=== PATIENT | male | born 1970 | race Caucasian/White ===

== ENCOUNTER 2019-09-28 22:14 | Observation (INO) ==
[2019-09-28] MEDS ORDERED: ONDANSETRON INJ 2 MG/ML 2 ML VIAL IV STA (22:25)
[2019-09-28] MEDS ORDERED: KETOROLAC 30 MG/ML VIAL IV STA (22:25)
[2019-09-28] MEDS ORDERED: SODIUM CHLORIDE 0.9% 1000ML 1,000 ML IV SCH (22:30)
[2019-09-28 22:50] LABS: Basophils # (auto) 0.03 K/uL (0-0.2); Basophils % (auto) 0.5 %; Eosinophils # (auto) 0.17 K/uL (0-0.5); Eosinophils % (auto) 2.8 %; Hematocrit (blood only) 42.8 % (42-52); Hemoglobin 15.1 g/dL (14.0-18.0); Immature Granulocytes # (auto) 0.02 K/uL (0.00-0.02); Immature Granulocytes % (auto) 0.3 %; Lymphocytes # (auto) 2.09 K/uL (1.2-3.4); Lymphocytes % (auto) 34.7 %; Mean Corpuscular Hemoglobin 34.6 pg (25-34); Mean Corpuscular Hgb Conc 35.3 g/dL (32-36); Mean Corpuscular Volume 98.2 fL (80-100); Mean Platelet Volume 11.2 fL (7.4-10.4); Monocytes # (auto) 0.52 K/uL (0.11-0.59); Monocytes % (auto) 8.6 %; Neutrophils # (auto) 3.19 K/uL (1.4-6.5); Neutrophils % (auto) 53.1 %; Platelet Count 135 K/uL (130-400); RDW Coefficient of Variation 12.5 % (11.5-14.5); Red Blood Count 4.36 M/uL (4.7-6.1); White Blood Count 6.02 K/uL (4.8-10.8)
[2019-09-28 22:51] LABS: Appearance Urine Clear (Clear); Bilirubin Urine Negative (Negative); Blood Urine Negative (Negative); Color Urine Yellow; Glucose Urine UA Negative (Negative); Ketones Urine Negative (Negative); Leukocyte Esterase Urine Negative (Negative); Nitrite Urine Negative (Negative); Protein Urine Negative (Negative); Specific Gravity Urine 1.018 (1.000-1.030); Urobilinogen Urine Negative (Negative)
[2019-09-28 23:12] LABS: Albumin Level 3.8 gm/dl (3.4-5.0); BUN Creatinine Ratio 14.4 (10-20); Calcium 9.3 mg/dl (8.5-10.1); Creatinine Clr Calc Pharmacy 98.4 ml/min; Est GFR (African American) 84.3; Est GFR (Non-African American) 72.8; Potassium 4.2 mmol/L (3.5-5.1)
[2019-09-28 23:15] LABS: Albumin Globulin Ratio 1.1 (0.9-2); Bilirubin,Total 0.7 mg/dl (0.2-1); Globulin 3.4 gm/dl (2.5-4.0); Total Protein 7.2 gm/dl (6.4-8.2)
--- NOTE | 2019-09-29 01:59 | Emergency Department Note ---
History of Present Illness General Chief complaint: Flank Pain Stated complaint: MID BACK, ABD PAIN, SWEATING Time Seen by Provider: 09/28/19 22:21 History of Present Illness Maximum Pain Intensity: 0 This is a 49-year-old male presenting to the emergency department for evaluation of right-sided mid back pain that began acutely at 7:30 PM, roughly 3 hours prior to arrival. The patient states that his pain is very intermittent, and currently rated a 0/10. At worst it was an 8/10. His pain has migrated from the right side mid back to the right upper quadrant. He is not having inferior radiation of pain. He was nauseated with severe pain but has not had vomiting. With severe pain he is also experiencing diaphoresis. He does not have a past history of abdominal surgery or kidney stones. No fevers or chills. No recent travel history. He considers himself usually healthy with only history of hypertension and thyroid disease. The patient did take Aleve with only minimal improvement of symptoms at home. Home Medications Home Medications Medication Instructions Recorded Confirmed Type levothyroxine [Synthroid] 50 mcg PO DAILY 09/28/19 09/28/19 History lisinopril-hydrochlorothiazide 1 tab PO DAILY 09/28/19 09/28/19 History Allergies Allergy/AdvReac Type Severity Reaction Status Date / Time No Known Allergies Allergy Unverified 09/28/19 23:00 Past Med/Surg History Medical History (Updated 09/29/19 @ 02:46 by Carlton Fay MD) Hypertension Hypothyroid Surgical History (Updated 09/29/19 @ 01:54 by Clive Hernandez PA-C) No significant past surgical history Social History Preferred Language: Slovak Communication Ability: Effective Police And Fire Dispatcher Required: No Beliefs That Will Affect Care: None Current Living Situation: Spouse and Family Other Information That Helps Us Care for You: No Feels Safe at Home: Yes Safety Concerns: Feels Safe At This Time Smoking Status: Never smoker Tobacco Type: smokeless tobacco ; Do You Dip or Chew Tobacco: Yes ; Tobacco Cessation Education Requested by Patient: No Hx Alcohol Use: Yes Alcohol type: beer Hx Substance Use: No Review of Systems A total of 10 systems reviewed and were otherwise negative Physical Exam Vital Signs Vital Signs - 24 hr 09/28/19 22:17 09/28/19 23:27 09/29/19 00:34 Temperature Source Oral Pulse Rate 58 L Pulse Rate [Right Finger] 67 68 Respiratory Rate 18 18 18 Blood Pressure 141/84 H Blood Pressure [Left Arm] 117/62 118/77 Blood Pressure Mean 103 Blood Pressure Mean [Left Arm] 80 90 Pulse Oximetry 100 99 98 Oxygen Delivery Method Room Air Room Air Room Air Sepsis Recent Fever Within 48 Hours No Sepsis New/Unexplained Change in Mental Status No Sepsis Action Taken by Nursing No Action Required 09/29/19 00:56 09/29/19 02:17 Temperature Source Pulse Rate Pulse Rate [Right Finger] 88 82 Respiratory Rate 20 20 Blood Pressure Blood Pressure [Left Arm] 137/90 128/80 Blood Pressure Mean Blood Pressure Mean [Left Arm] 105 96 Pulse Oximetry 98 97 Oxygen Delivery Method Room Air Room Air Sepsis Recent Fever Within 48 Hours Sepsis New/Unexplained Change in Mental Status Sepsis Action Taken by Nursing VITALS: Vitals are noted on the nurse's note and reviewed by myself. Vital signs stable. GENERAL: Well-developed, well-nourished, white male who appears in moderate discomfort. He is cooperative with the examination. HEAD: Normocephalic atraumatic. EARS: External ear normal. External auditory canals clear, tympanic membranes pearly ball without erythema or effusion bilaterally. EYES: Pupils equal round and reactive to light and accommodation. Conjunctivae without injection, sclerae without icterus. Extraocular movements intact. NOSE: Patent, turbinates without inflammation or discharge. MOUTH: Mucous membranes moist. Tonsils are not enlarged. Pharynx without erythema, blood, or exudate. Uvula midline. Airway patent. NECK: Supple without nuchal rigidity. No lymphadenopathy. No thyromegaly. Cervical spine is nontender. HEART: Regular rate and rhythm without murmurs gallops or rubs. LUNGS: Clear to auscultation bilaterally without wheezes, rales or rhonchi. No retractions or accessory muscle use. ABDOMEN: Positive normal bowel sounds x 4. Soft with right upper quadrant tenderness. No lower abdominal tenderness. No rebound or guarding. MUSCULOSKELETAL: No muscle atrophy, erythema, or edema noted. Full range of motion in all extremities. NEURO: Patient was alert and oriented to person place and time. CN II through XII grossly intact. Course Administered Medications Sodium Chloride (Nss 1000ml) 1,000 mls @ 80 mls/hr IV .[id number] [facility] Stop: 10/29/19 03:37 Last Admin: 09/29/19 04:02 Dose: 80 mls/hr Documented by: [id number] Discontinued Medications Sodium Chloride (Nss 1000ml) 1,000 mls @ 999 mls/hr IV .[id number] [facility] Stop: 09/28/19 23:30 Last Infusion: 09/28/19 23:56 Dose: 0 mls/hr Documented by: [id number] Admin: 09/28/19 22:39 Dose: 999 mls/hr Documented by: [id number] Famotidine 20 mg/ Syringe 5 mls @ 2.5 mls/min IV ONE ONE Stop: 09/29/19 03:39 Last Admin: 09/29/19 04:02 Dose: 2.5 mls/min Documented by: [id number] Ketorolac Tromethamine (Toradol) 30 mg IV NOW STA Stop: 09/28/19 22:26 Last Admin: 09/28/19 22:39 Dose: 30 mg Documented by: [id number] Ondansetron HCl (Zofran) 4 mg IV NOW STA Stop: 09/28/19 22:26 Last Admin: 09/28/19 22:39 Dose: 4 mg Documented by: [id number] Medical Decision Making Differential Diagnosis Differential diagnosis: Etiologies such as biliary colic, cholecystitis, hepatitis, pancreatitis, cardiac disease, pancreatitis, gastritis, peptic ulcer disease, appendicitis, cystitis, diverticulitis, mesenteric ischemia, inflammatory bowel disease, ileus, bowel obstruction, testicular/adnexal torsion, aortic pathology, shingles, as well as others were considered Laboratory Data Result diagrams: 09/28/19 22:33 09/28/19 22:33 Lab Results 09/28/19 09/28/19 09/28/19 Range/Units 22:33 22:33 22:40 WBC 6.02 (4.8-10.8) K/uL RBC 4.36 L (4.7-6.1) M/uL Hgb 15.1 (14.0-18.0) g/dL Hct 42.8 (42-52) % MCV 98.2 (80-100) fL MCH 34.6 H (25-34) pg MCHC 35.3 (32-36) g/dL RDW Std Deviation 45.0 (36.4-46.3) fL RDW Coeff of Jazmine 12.5 (11.5-14.5) % Plt Count 135 (130-400) K/uL MPV 11.2 H (7.4-10.4) fL Immature Gran % (Auto) 0.3 % Neut % (Auto) 53.1 % Lymph % (Auto) 34.7 % Swift % (Auto) 8.6 % Eos % (Auto) 2.8 % Baso % (Auto) 0.5 % Immature Gran # (Auto) 0.02 (0.00-0.02) K/uL Neut # (Auto) 3.19 (1.4-6.5) K/uL Lymph # (Auto) 2.09 (1.2-3.4) K/uL Swift # (Auto) 0.52 (0.11-0.59) K/uL Eos # (Auto) 0.17 (0-0.5) K/uL Baso # (Auto) 0.03 (0-0.2) K/uL Sodium 136 (136-145) mmol/L Potassium 4.2 (3.5-5.1) mmol/L Chloride 101 (98-107) mmol/L Carbon Dioxide 27 (21-32) mmol/L Anion Gap 8.0 (3-11) BUN 17 (7-18) mg/dl Creatinine 1.17 (0.6-1.4) mg/dl Est Cr Clr Drug Dosing 98.4 ml/min Est GFR ( Amer) 84.3 Est GFR (Non-Af Amer) 72.8 BUN/Creatinine Ratio 14.4 (10-20) Glucose 155 H (70-99) mg/dl Calcium 9.3 (8.5-10.1) mg/dl Total Bilirubin 0.7 (0.2-1) mg/dl AST 33 (15-37) U/L ALT 74 (12-78) U/L Alkaline Phosphatase 71 (45-117) U/L Total Protein 7.2 (6.4-8.2) gm/dl Albumin 3.8 (3.4-5.0) gm/dl Globulin 3.4 (2.5-4.0) gm/dl Albumin/Globulin Ratio 1.1 (0.9-2) Lipase 150 (73-393) U/L Urine Color Yellow Urine Appearance Clear (Clear) Urine pH 5.0 (4.5-7.5) Ur Specific [place] 1.018 (1.000-1.030) Urine Protein Negative (Negative) Urine Glucose (UA) Negative (Negative) Urine Ketones Negative (Negative) Urine Blood Negative (Negative) Urine Nitrite Negative (Negative) Urine Bilirubin Negative (Negative) Urine Urobilinogen Negative (Negative) Ur Leukocyte Esterase Negative (Negative) Imaging Data Radiologist's Impression: Preliminary Findings Only See Final Report For Complete Findings CT ABDOMEN & PELVIS Without Contrast: Prominence of fat around the distal esophagus near the gastroesophageal junction. Fatty liver Borderline distended gallbladder Negative for hydronephrosis or obstructive uropathy Normal appendix. L5 on S1 grade 1 anterior listhesis with bilateral pars interarticularis defect Preliminary Findings Only See Final Report For Complete Findings US RUQ: Comparison: CT 09/28/2019 Limited right abdominal ultrasound Fatty liver Slightly distended gallbladder with sludge near the gallbladder fundus. Small stones may also be present. Within the sludge punctate Doppler flow is seen. Consider follow-up such as with an MRI to exclude a mass CBD measures 4 mm Normal right kidney MDM Narrative Physical exam and history were performed. Nursing notes, EMR, and Medication List were personally reviewed. Patient appears to have right side mid back pain and right upper quadrant abdominal pain for the past few hours bring him to the ER. The pain is somewhat colicky in nature, and on my initial presentation was rated at a very low level. After discussion of his symptoms I did elect to draw labs and send him to CT scan for possible stone versus other etiology. The patient was given IV Toradol, IV fluids, and IV Zofran. Patient's blood work is as above and was reviewed. He does not have a significantly elevated white blood cell count, gross anemia, bandemia, or significant electrolyte imbalance. Lipase and transaminases are not diagnostic. Urine is without blood or evidence of infection. CT scan was reviewed by myself and radiology and shows essentially only a distended gallbladder. Out of concern for possible gallbladder etiology ultrasound was then performed. This was also reviewed, and the gallbladder continues to be slightly distended with sludge near the fundus. There is concern for stones and possible mass on ult rasound that will certainly require MRI for further management. On repeat physical exam, the patient's discomfort is improved, but he still has persistent cramping right upper quadrant pain. Because of this I did discuss the case with Dante Copeland PA-C, of general surgery, who indicates that surgery will be happy to follow the patient in the morning. I then discussed the case with the on-call hospitalist team, who agreed to admit the patient. The patient will likely need MRCP for better evaluation of his symptoms, but this will be left to the discretion of the managing team. The patient himself was pleased with this and was comfortable with staying in the hospital. He remained in stable condition throughout the remainder of his ER stay. The chart was completed utilizing [employer] Speech Voice Recognition Software. Grammatical errors, random word insertions, pronoun errors, and incomplete sentences are an occasional consequence of this system due to software limitations, ambient noise, and hardware issues. Any formal questions or concerns about the content, text, or information contained within the body of this dictation should be directly addressed to the provider for clarification. . Impression & Plan Abdominal pain, RUQ, Biliary colic Discharge Plan Visit Data *Final* Discharge Date/Time: 09/29/19 03:18 Chief Complaint: Flank Pain Stated Complaint: MID BACK, ABD PAIN, SWEATING ED Provider: Richard Barone ED Midlevel Provider: Clive Hernandez Discharge Problem: Abdominal pain, RUQ, Biliary colic Patient Disposition: Admitted As Inpatient Discharge Instructions Interventions: ED Discharge Assessment Last Done: 09/29/19 03:18
--- NOTE | 2019-09-29 02:29 | History & Physical Report ---
Date of Service September 29, 2019 Assessment & Plan (1) Abdominal pain, RUQ: Jose Dunham is a 49-year-old male with a past medical history of hypertension and hypothyroidism who presents with right upper quadrant pain. Right upper quadrant pain suspect gastritis versus center of Oddi dysfunction Transaminases normal, alkaline phosphatase normal Patient with right upper quadrant pain following steak salad meal. RUQ US: Fatty liver. Slightly distended gallbladder with sludge near the gal lbladder fundus. Small stones may also be present. Within the sludge punctate Doppler flow is seen. Consider follow-up such as with an MRI to exclude a mass CBD measures 4 mm.Normal right kidney. - CT ABDOMEN & PELVIS Without Contrast: Prominence of fat around the distal esophagus near the gastroesophageal junction. Fatty liver. Borderline distended gallbladder. Negative for hydronephrosis or obstructive uropathy. Normal appendix. L5 on S1 grade 1 anterior listhesis with bilateral pars interarticularis defect - HIDA scan pending to rule out gallbladder dysfunction No signs of infection, no leukocytosis, afebrile. No antibiotics indicated at this time. -Famotidine x1, pantoprazole 40 mg daily N.p.o. Seen by surgery while in ER. Surgery aware, consult placed Received Toradol 30 mg x 1 in ED, discontinued Morphine 1-2 mg scaled pain control every 4 hours Zofran 4 mg every 4 hours as needed Fatty liver Appreciated on imaging as above Patient endorses at least a drink per week alcohol intake, denies symptoms of alcohol withdrawal Transaminases normal -Alcohol intake may contribute to gastritis with pain noted above Hypertension Continue lisinoprilhydrochlorothiazide Hypothyroidism Continue Synthroid 50 mg p.o. daily DVT prophylaxis: Low risk, SCDs Diet: N.p.o. Disposition: Medical surgical CODE STATUS: Full code (2) Biliary colic: (3) Hypertension: (4) Hypothyroid: History of Present Illness Chief Complaint: Right upper quadrant pain Primary Care Provider: David Simms Jr, DO Jose is a 49-year-old male with a past medical history of hypothyroidism and hypertension who presents with 1 day of 6/10 right upper quadrant pain 2 hours after having steak salad. Jose reports his symptoms began at around 7:30 PM 2 hours after having dinner. He experienced right flank pain which was more towards his back which wrapped around and migrated to his right upper quadrant. He notes that the pain had some spasm-like quality and was worse trying to sit or lay down and appeared to improve when he got up and walked around. He notes the pain was 6/10 and that during the episode he was "pouring sweat". He denies nausea, vomiting, diarrhea, constipation, fever, chills, rigors. He thinks he has had some pain in the same area intermittently over the past several weeks/months but "nothing like this." MHx: Reviewed SHx: Reviewed Allergies: NKDA Social: Tobacco (snuff 1 can per day x30 years), ETOH 2-3 days per week 3-4 drinks per sitting. Denies recreational drug use. Reports he lives at home with his and daughter, no sick contacts in the house. CODE STATUS: Full Code Allergies Allergy/AdvReac Type Severity Reaction Status Date / Time No Known Allergies Allergy Unverified 09/28/19 23:00 Home Medications Home Medications Medication Instructions Recorded Confirmed Type levothyroxine [Synthroid] 50 mcg PO DAILY 09/28/19 09/28/19 History lisinopril-hydrochlorothiazide 1 tab PO DAILY 09/28/19 09/28/19 History Past Med/Surg History Medical History (Updated 09/29/19 @ 02:46 by Carlton Fay MD) Hypertension Hypothyroid Surgical History (Updated 09/29/19 @ 01:54 by Clive Hernandez PA-C) No significant past surgical history Social History Preferred Language: Kosovan Communication Ability: Effective Basketball Scout Required: No Beliefs That Will Affect Care: None Current Living Situation: Spouse and Family Other Information That Helps Us Care for You: No Feels Safe at Home: Yes Safety Concerns: Feels Safe At This Time Smoking Status: Never smoker Tobacco Type: smokeless tobacco ; Do You Dip or Chew Tobacco: Yes ; Tobacco Cessation Education Requested by Patient: No Hx Alcohol Use: Yes Alcohol type: beer Hx Substance Use: No Review of Systems Review of Systems: Constitutional: Denies fever, chills Eyes: Denies vision change ENT: Denies ear pain, sore throat, sinus pain Cardiovascular: Denies Chest pain, chest pressure, palpitations, extremity swelling Respiratory: Denies shortness of breath, cough, sputum production, difficulty breathing Gastrointestinal: Denies nausea, vomiting, constipation, diarrhea. Endorses abdominal pain as noted in HPI. Denies steatorrhea. Genitourinary: Denies pain with urination, urinary urgency, urinary frequency Musculoskeletal: Denies weakness, muscle aches/pain, joint aches/pain Integumentary:Denies rash, lesions, bruising Neurological: Denies headache, numbness, tingling, focal weakness Physical Exam Physical Exam: General: A&Ox3. NAD. Cooperative. HEENT: Atraumatic, normocephalic. Pupils equal and responsive to light and accommodation. External nasal and ear anatomy normal. Mucous membranes moist. No anterior posterior cervical chain adenopathy. Pulm: CTAB A&P. -wheezes, -rales, -rhonchi. Symmetrical chest rise. No increase work of breathing. No respiratory distress. Cardiac: RRR, -mrg. Radial pulses intact and symmetrical. Abdominal: Mild tenderness to palpation at right upper quadrant. Solis's equivocal. nondistended, soft. BS present. Extremities: Remedies intact. Moving all extremities equally. Finger flexion/extension, elbow flexion/extension, hip flexion, knee flexion/extension, ankle dorsiflexion/plantar flexion intact with 5/5 strength bilaterally. Sensation is soft touch intact in distal extremities. Results & Data Results & Data ([facility]) Vital Signs (Past 12 Hours) Vital Signs Pulse Pulse Resp BP BP Pulse Ox 09/29/19 02:17 82 20 128/80 97 09/29/19 00:56 88 20 137/90 98 09/29/19 00:34 68 18 118/77 98 09/28/19 23:27 67 18 117/62 99 09/28/19 22:17 58 L 18 141/84 H 100 Supervising Physician Co-Signing Physician Notes Attending addendum: I have physically seen this patient, have supervised the medical residents activities, and agree with the H&P unless as otherwise noted. Assessment and Plan: Right upper quadrant abdominal pain- Right upper quadrant ultrasound shows fatty liver and slightly distended gallbladder with sludge in the gallbladder fundus. CT abdomen pelvis shows prominence of fat around the distal esophagus near the gastroesophageal junction, and borderline distended gallbladder. Order HIDA scan NM. Differential also includes gastritis, esophagitis, ulcers. Patient admits to 4-6 beers on the weekends and averages 3 16 ounce sodas daily. NPO IV fluids Morphine IV as needed severe pain Zofran 4 mg IV every 6 hours as needed. Remainder of orders and notations as noted. Resident Activity Tracking Resident Involvement: Resident Care Provided Care Provided: Adult [facility]
--- NOTE | 2019-09-29 02:40 | Surgery Consultation ---
Date of Consultation September 29, 2019 Assessment & Plan (1) Abdominal pain, RUQ: -due to GB US finding pt. is being admitted by medicine -plan for addition al imaging: -HIDA vs. MRCP -pain meds to be ordered -advised to keep NPO pending further imaging results as above. feeling somewhat better this AM pt for HIDA today.... pending findings will plan lap cam for tomorrow...could potentially go home after surgery tomorrow pending no complications. could have clears today after HIDA but NPO after midnight. History of Present Illness History of Present Illness 49 year old male presented to ED as last evening about 2 hours after eating he developed Right flank pain that radiated to his RUQ. He had this in the past (several weeks ago) but was noted to be much more severe today. No provocative factors noted, but was alleviated with toradol given in ED. He denies N/V, fevers, shakes, chills. I the ED, labs were unremarkable. GB us showed concern for stones/sludge in GB. Doppler flow on this study was abnormal as well. At the time of my exam he was resting in bed and was n no distress. Allergies Allergy/AdvReac Type Severity Reaction Status Date / Time No Known Allergies Allergy Unverified 09/28/19 23:00 Home Medications Home Medications Medication Instructions Recorded Confirmed Type levothyroxine [Synthroid] 50 mcg PO DAILY 09/28/19 09/28/19 History lisinopril-hydrochlorothiazide 1 tab PO DAILY 09/28/19 09/28/19 History Patient History Medical History (Updated 09/29/19 @ 02:46 by Carlton Fay MD) Hypertension Hypothyroid Surgical History (Updated 09/29/19 @ 01:54 by Clive Hernandez PA-C) No significant past surgical history Social History Preferred Language: Uzbek Communication Ability: Effective [employer] Programmer Required: No Beliefs That Will Affect Care: None Current Living Situation: Spouse and Family Other Information That Helps Us Care for You: No Feels Safe at Home: Yes Safety Concerns: Feels Safe At This Time Smoking Status: Never smoker Tobacco Type: smokeless tobacco ; Do You Dip or Chew Tobacco: Yes ; Tobacco Cessation Education Requested by Patient: No Hx Alcohol Use: Yes Alcohol type: beer Hx Substance Use: No Review of Systems Constitutional: no fever and no chills Eyes: no diplopia Ear, Nose, Mouth, Throat: no ear pain Respiratory: no cough and no dyspnea Cardiovascular: no chest pain Gastrointestinal: + abdominal pain; no nausea and no vomiting Genitourinary: no dysuria Musculoskeletal: no back pain Integumentary: no rash Neurologic: no localized weakness Physical Exam Constitutional: well developed and well nourished; no acute distress Eyes: no scleral jaundice ENMT: Ears: no hearing impairment Neck: trachea midline Respiratory: normal respiratory effort, lungs clear to auscultation Cardiovascular: Rate/Rhythm: regular rate and regular rhythm Vessels: radial pulses present Gastrointestinal (Abdomen): minimal distention noted, BS are normal, no rebound tenderness. Pain noted in RUQ with very deep palpation Musculoskeletal: no calf tenderness Skin: no rashes, warm and dry Neurologic: moves all extremities Results & Data Vital Signs (Past 12 Hours) Vital Signs Pulse Pulse Resp BP BP Pulse Ox 09/29/19 02:17 82 20 128/80 97 09/29/19 00:56 88 20 137/90 98 09/29/19 00:34 68 18 118/77 98 09/28/19 23:27 67 18 117/62 99 09/28/19 22:17 58 L 18 141/84 H 100 PG Care Time/CCT Total # of Minutes Spent Total Time Spent with Patient: Total time spent is greater than 50% in coordination of care (as documented) at patient's floor/unit and/or counseling patient: Coding Level of Care Code 90049 Inpt Consult Level 4 Diagnoses Abdominal pain, RUQ R10.11
[2019-09-29] MEDS ORDERED: MoRPHine SULFATE 2 MG/ML CARP IV PRN ×2 (03:38→03:40)
[2019-09-29] MEDS ORDERED: ONDANSETRON INJ 2 MG/ML 2 ML VIAL IV PRN (03:38)
[2019-09-29] MEDS ORDERED: ACETAMINOPHEN 325 MG TAB PO PRN (03:38)
[2019-09-29] MEDS ORDERED: FAMOTIDINE 20 MG in SYRINGE 3 ML IV ONE (03:38)
[2019-09-29] MEDS: SODIUM CHLORIDE 0.9% 1000ML 1,000 ML IV SCH ×2 (04:02→15:51)
--- NOTE | 2019-09-29 04:55 | Billing Data ---
Date of Service September 29, 2019 Coding Level of Care Code 62462 OBS Care - Level 3
[2019-09-29 05:07] LABS: Basophils # (auto) 0.02 K/uL (0-0.2); Basophils % (auto) 0.3 %; Eosinophils # (auto) 0.11 K/uL (0-0.5); Eosinophils % (auto) 1.6 %; Hematocrit (blood only) 44.1 % (42-52); Hemoglobin 15.4 g/dL (14.0-18.0); Immature Granulocytes # (auto) 0.02 K/uL (0.00-0.02); Immature Granulocytes % (auto) 0.3 %; Lymphocytes # (auto) 1.82 K/uL (1.2-3.4); Lymphocytes % (auto) 26.5 %; Mean Corpuscular Hemoglobin 34.1 pg (25-34); Mean Corpuscular Hgb Conc 34.9 g/dL (32-36); Mean Corpuscular Volume 97.6 fL (80-100); Mean Platelet Volume 11.3 fL (7.4-10.4); Monocytes # (auto) 0.75 K/uL (0.11-0.59); Monocytes % (auto) 10.9 %; Neutrophils # (auto) 4.14 K/uL (1.4-6.5); Neutrophils % (auto) 60.4 %; Platelet Count 131 K/uL (130-400); RDW Coefficient of Variation 12.7 % (11.5-14.5); RDW Standard Deviation 45.4 fL (36.4-46.3); Red Blood Count 4.52 M/uL (4.7-6.1); White Blood Count 6.86 K/uL (4.8-10.8)
[2019-09-29 05:30] LABS: Albumin Level 3.6 gm/dl (3.4-5.0); BUN Creatinine Ratio 16.4 (10-20); Creatinine Clr Calc Pharmacy 123.1 ml/min; Est GFR (African American) 111.3; Est GFR (Non-African American) 96.1; Potassium 4.1 mmol/L (3.5-5.1)
[2019-09-29 05:33] LABS: Albumin Globulin Ratio 1.1 (0.9-2); Bilirubin,Total 0.6 mg/dl (0.2-1); Globulin 3.3 gm/dl (2.5-4.0); Total Protein 6.9 gm/dl (6.4-8.2)
[2019-09-29] MEDS: LEVOTHYROXINE SODIUM 50 MCG TABLET PO SCH (05:48)
--- NOTE | 2019-09-29 07:12 | Ultrasound Report ---
ULTRASOUND RIGHT UPPER QUADRANT ABDOMEN CLINICAL HISTORY: Right upper quadrant abdominal pain. COMPARISON STUDY: Abdominal CT dated 09/28/2019. TECHNIQUE: Real-time, grayscale, and color flow sonography of the right upper quadrant of the abdomen was performed. Images are reviewed in the transverse and longitudinal planes. FINDINGS: Liver: The liver is enlarged and demonstrates heterogeneously increased echotexture consistent with h epatic steatosis. Note that this degrades acoustic penetration of the liver. Fatty sparing is seen ad jacent to the gallbladder fossa. There is no intrahepatic biliary ductal dilatation. The main portal vein is patent. Gallbladder: The gallbladder is distended. Shadowing gallstones are noted, and the gallbladder wall a ppears mildly thickened and edematous. No pericholecystic fluid is identified. A sonographic Solis's sign was not reported. The common bile duct measures up to 0.4 cm in diameter. Pancreas: Nonvisualized due to overlying bowel gas. Right kidney: Survey images of the right kidney demonstrate normal size and echotexture. There is no hydronephrosis. Ascites: None. IMPRESSION: 1. Cholelithiasis with findings highly concerning for acute cholecystitis. Surgical consultation is a dvised. 2. Hepatomegaly and severe hepatic steatosis. 3. The pancreas was not visualized. ACT 112: Negative or not required by law. Electronically signed by: Irineo Saha M.D. 09/29/2019 7:11 AM
--- NOTE | 2019-09-29 07:40 | CT Scan Report ---
ABDOMEN AND PELVIS CT WITHOUT CONTRAST CT DOSE: 904.70 mGy.cm HISTORY: right flank pain/ruq abd pain TECHNIQUE: Multiaxial CT images of the abdomen and pelvis were performed without contrast. A dose lo wering technique was utilized adhering to the principles of ALARA. COMPARISON STUDY: None. FINDINGS: The lung bases are clear. No pneumoperitoneum. No pneumatosis. Bilateral L5 spondylolysis w ith associated grade 1 anterolisthesis. Small fat-containing hiatal hernia. Hepatic steatosis. Mild i nflammatory change surrounding the gallbladder. The unenhanced spleen, adrenal glands, pancreas, and kidneys are unremarkable. No retroperitoneal lymphadenopathy. No hydronephrosis. The bladder is unrem arkable. Suboptimal evaluation for bowel pathology due to the lack of intravenous and oral contrast. However, there is no definite bowel wall thickening or obstruction. Normal appendix. Colonic divertic ulosis. IMPRESSION: 1. Inflammatory change surrounding the gallbladder. This is concerning for acute cholecystitis. 2. Hepatic steatosis. 3. Fat-containing small hiatal hernia. 4. Colonic diverticulosis. No evidence for diverticulitis. ACT 112: Negative or not required by law. Electronically signed by: Eduardo Felder M.D. 09/29/2019 7:38 AM
[2019-09-29] MEDS ORDERED: PIPERACILL/TAZOBAC CONSULT ACTIVE PRN (09:28)
[2019-09-29] MEDS ORDERED: PIPERACILLIN/TAZOBACTAM 4.5 GM in DEXTROSE 5% 100 ML IV ONE (09:45)
--- NOTE | 2019-09-29 11:56 | Nuclear Medicine Report ---
NUCLEAR MEDICINE HEPATOBILIARY SCAN HISTORY: Right upper quadrant pain. COMPARISON: Abdominal ultrasound 09/29/2019. TECHNIQUE: Immediately following the intravenous administration of 5.6 mCi Tc-99m Choletec, dynamic a nterior abdominal imaging was performed. FINDINGS: Uniform hepatic tracer accumulation is shown. Prompt intrahepatic biliary excretion is seen. The comm on bile duct and small bowel are visualized by 15 minutes. The gallbladder is not identified on the f irst 60 minutes. Therefore, 2 mg of intravenous morphine was administered. An additional 30 minutes o f imaging was obtained. The gallbladder was not identified during the examination. IMPRESSION: Above findings consistent with acute cholecystitis/cystic duct obstruction. Surgical consultation rec ommended. ACT 112: Positive. There are findings on this exam that require communication between the performing entity and the patient following Patient Test Result Information Act ([place] Act 112) guidelines. Electronically signed by: Eduardo Felder M.D. 09/29/2019 11:55 AM
[2019-09-29] MEDS: LISINOPRIL/HCTZ 20/12.5MG 1 TAB TAB PO SCH (12:30)
[2019-09-29] MEDS: PANTOprazole 40 MG TAB PO SCH (12:30)
[2019-09-29] MEDS: SINCALIDE IV SCH (12:31)
[2019-09-29] MEDS: SODIUM CHLORIDE 0.9% IV SCH (12:31)
--- NOTE | 2019-09-29 14:38 | Hospitalist Progress Note ---
Date of Service September 29, 2019 Assessment & Plan (1) Abdominal pain, RUQ: Concern for acute cholecystitis with this impacted cystic duct stone likely requiring surgery in the next few days. Patient is placed on Zosyn with parenteral pain and nausea control (2) Biliary colic: Nuclear medicine scan suggest duct cystic duct stone as the origin of his discomfort (3) Hypertension: pt is de escalated to lisinopril holding hctz (4) Hypothyroid: continues on synthroid 50 mcg (5) DVT prophylaxis: scd for dvt prevention Admission and Anticipated Discharge Date Admission Date: September 29, 2019 Subjective pt feels improved after pain control, did tolerate nuclear med scan which suggests cystic duct stone. Pt understands that he will benefit from surgery. Tenative surgery will be 09/30/19 Review of Systems Review of Systems: Mild distress and fatigue no headache, blurry or double vision no speech or swallowing issues no chest pain, pressure or palpitations no shortness of breath, cough or wheezes Mild abdominal pain,Now without nausea or vomiting no dysuria, hematuria or frequency no focal joint pain or swelling no back pain, CVA tenderness or radicular pain no bruising, bleeding or rashes no focal signs of weakness or numbness or altered sensation no complaints or anxiety or depression Physical Exam Physical Exam: The patient appeared well nourished and normally developed. Only with mild distress Vital signs as documented. Head exam is normocephalic atraumatic no scleral icterus Neck is without JVD, thyromegaly, or carotid bruits. Lungs are clear to auscultation, no focal loss of breath sounds Cardiac exam, Rhythm is regular.. No murmurs, rubs or gallops. Abdominal exam reveals normal bowel sounds, soft Very mild right upper quadrant Tenderness Extremities are nonedematous and both pedal pulses are normal. Neurologic exam is alert and oriented, no focal loss of strength or sensation Skin is without bruises or rashes He is anicteric with no jaundice Psychologically is without concerns for anxiety or depression Results & Data Results & Data ([facility]) Vital Signs (Past 12 Hours) Vital Signs Temp Pulse Resp BP Pulse Ox 09/29/19 12:31 98.1 F 62 18 126/86 96 09/29/19 07:45 98.2 F 63 20 127/80 96 09/29/19 04:54 123/76 09/29/19 03:38 97.9 F 81 20 154/93 H 96 09/29/19 03:11 97.9 F 75 20 114/71 98 PG Care Time/CCT Total # of Minutes Spent Total Time Spent with Patient: Total time spent is greater than 50% in coordination of care (as documented) at patient's floor/unit and/or counseling patient: Coding Level of Care Code 77049 Subseq Hosp Care Lvl 2 Diagnoses Abdominal pain, RUQ R10.11 Biliary colic K80.50 Hypertension I10 Hypothyroid E03.9 DVT prophylaxis Z29.9
[2019-09-29] MEDS: PIPERACILLIN/TAZOBACTAM 3.375 GM in DEXTROSE 5% 100 ML IV SCH ×2 (15:53→23:27)
--- NOTE | 2019-09-29 18:11 | Anesthesiology Consultation ---
Date of Service September 29, 2019 Assessment & Plan (1) Encounter for pre-operative examination: Chart Review Chart Review: Acceptable Risk for Surgery and Patient NOT seen in Pre Admission Testing Consults Requested none History Surgery Operation Date: 09/30/19 08:50 Proposed Procedures p Laparoscopic Cholecystectomy - Valente Shelton DO Height/Weight Height: 6 ft Weight: 110.1 kg Allergies Allergy/AdvReac Type Severity Reaction Status Date / Time No Known Allergies Allergy Unverified 09/28/19 23:00 Medications Home Medications Medication Instructions Recorded Confirmed Last Taken levothyroxine [Synthroid] 50 mcg PO DAILY 09/28/19 09/28/19 09/28/19 lisinopril-hydrochlorothiazide 1 tab PO DAILY 09/28/19 09/28/19 09/28/19 Active Medications Generic Name Dose Route Start Last Admin Trade Name Freq PRN Reason Stop Dose Admin Lisinopril/HCTZ 1 tab 09/29/19 09:00 09/29/19 12:30 Prinzide 20/12.5mg PO 10/29/19 08:59 1 tab DAILY CELSA Administration Sodium Chloride 1,000 mls @ 80 mls/hr 09/29/19 03:38 09/29/19 15:51 Nss 1000ml IV 10/29/19 03:37 80 mls/hr .[id number] CELSA Administration Sincalide 2.2 mcg/ Sodium 102.2 mls @ 200 mls/hr 09/29/19 10:30 09/29/19 12:31 Chloride IV 09/30/19 18:00 Not Given TODAY@1030 CELSA Piperacillin Sod/Tazobactam 115 mls @ 28.75 mls/hr 09/29/19 16:00 09/29/19 15:53 Sod 3.375 gm/ Dextrose IV 10/09/19 15:59 28.8 mls/hr Q8H CELSA Administration Protocol Levothyroxine Sodium 50 mcg 09/29/19 06:30 09/29/19 05:48 Synthroid PO 10/29/19 06:29 50 mcg DAILYBB CELSA Administration Pantoprazole Sodium 40 mg 09/29/19 09:00 09/29/19 12:30 Protonix PO 10/29/19 08:59 40 mg QAM CELSA Administration Past Medical History Medical History Hypertension Hypothyroid Past Surgical History Surgical History No significant past surgical history Social History Smoking Status: Never smoker tobacco type: smokeless tobacco Do You Dip or Chew Tobacco: Yes Hx Alcohol Use: Yes Alcohol type: beer alcohol intake frequency: a few times a month Hx Substance Use: No Physical Exam Vital Signs Last Vital Signs Temp 36.8 C 09/29/19 15:28 Pulse 78 09/29/19 15:28 Resp 17 09/29/19 15:28 BP 107/71 09/29/19 15:28 Pulse Ox 96 09/29/19 15:28 Testing Laboratory Results 09/29/19 04:42 09/29/19 04:42 Urine Color Yellow 09/28/19 22:40 Urine Appearance Clear (Clear) 09/28/19 22:40 Urine pH 5.0 (4.5-7.5) 09/28/19 22:40 Ur Specific [place] 1.018 (1.000-1.030) 09/28/19 22:40 Urine Protein Negative (Negative) 09/28/19 22:40 Urine Glucose (UA) Negative (Negative) 09/28/19 22:40 Urine Ketones Negative (Negative) 09/28/19 22:40 Urine Nitrite Negative (Negative) 09/28/19 22:40 Ur Leukocyte Esterase Negative (Negative) 09/28/19 22:40 Electrocardiogram Date: 09/29/19 Findings: + NSR @ (19)
[2019-09-30] MEDS: SODIUM CHLORIDE 0.9% 1000ML 1,000 ML IV SCH ×2 (03:19→16:12)
[2019-09-30 05:04] LABS: Hematocrit (blood only) 42.7 % (42-52); Hemoglobin 14.7 g/dL (14.0-18.0); Mean Corpuscular Hemoglobin 34.3 pg (25-34); Mean Corpuscular Hgb Conc 34.4 g/dL (32-36); Mean Corpuscular Volume 99.8 fL (80-100); Mean Platelet Volume 11.4 fL (7.4-10.4); Platelet Count 128 K/uL (130-400); RDW Coefficient of Variation 12.9 % (11.5-14.5); RDW Standard Deviation 46.7 fL (36.4-46.3); Red Blood Count 4.28 M/uL (4.7-6.1); White Blood Count 5.18 K/uL (4.8-10.8)
[2019-09-30 05:33] LABS: Albumin Level 3.3 gm/dl (3.4-5.0); BUN Creatinine Ratio 9.4 (10-20); Bilirubin Direct 0.2 mg/dl (0-0.2); Calcium 8.9 mg/dl (8.5-10.1); Creatinine Clr Calc Pharmacy 86.1 ml/min; Est GFR (African American) 72.2; Est GFR (Non-African American) 62.3; Potassium 4.3 mmol/L (3.5-5.1)
[2019-09-30 05:38] LABS: Bilirubin,Total 1.3 mg/dl (0.2-1); Total Protein 6.4 gm/dl (6.4-8.2)
[2019-09-30] MEDS: LEVOTHYROXINE SODIUM 50 MCG TABLET PO SCH (05:49)
[2019-09-30] MEDS: PANTOprazole 40 MG TAB PO SCH (08:23)
[2019-09-30] MEDS: LISINOPRIL/HCTZ 20/12.5MG 1 TAB TAB PO SCH (08:23)
[2019-09-30] MEDS: PIPERACILLIN/TAZOBACTAM 3.375 GM in DEXTROSE 5% 100 ML IV SCH ×2 (08:27→16:12)
--- NOTE | 2019-09-30 11:54 | Electrocardiogram Report ---
Test Reason : Blood Pressure : / mmHG Vent. Rate : 064 BPM Atrial Rate : 064 BPM P-R Int : 150 ms QRS Dur : 088 ms QT Int : 428 ms P-R-T Axes : 048 -37 013 degrees QTc Int : 441 ms Normal sinus rhythm Left axis deviation Abnormal ECG When compared with ECG of 23-SEP-2004 07:59, No significant change was found Confirmed by Tyson Sprague ([id number]) on 09/30/2019 11:54:13 AM Referred By: REFERRED SELF Confirmed By:Tyson Sprague
[2019-09-30] MEDS ORDERED: CONRAY 60% 50 ML VIAL ONE (12:28)
[2019-09-30] MEDS ORDERED: BUPIVACAINE 0.5 % 5 MG/1 ML MPF 30ML VIAL ONE (12:28)
--- NOTE | 2019-09-30 12:47 | History & Physical Bridge Note ---
Date of Service September 30, 2019 History & Physical Bridge Note I have examined the patient, reviewed the History & Physical and in the interval since the performance of the History & Physical I have noted the following changes of clinical significance: no changes noted procedure explained to pt including r and c he would like to proceed abd neg has small umbilical hernia all questions answered permit signed
[2019-09-30] MEDS ORDERED: ROCURONIUM BROMIDE 10 MG/ML 5 ML VIAL ONE ×3 (12:56→13:56)
[2019-09-30] MEDS ORDERED: fentaNYL citrate 100 MCG/2 ML VIAL ONE ×2 (12:56→13:51)
[2019-09-30] MEDS ORDERED: MIDAZOLAM HCL 1 MG/ML 2ML VIAL ONE (12:56)
[2019-09-30] MEDS ORDERED: DEXAMETHASONE SOD INJ 4 MG/ML VIAL ONE (12:56)
[2019-09-30] MEDS ORDERED: LIDOCAINE HCL 2% 2 ML VIAL/AMP(20MG/ML) INFIL ONE (12:56)
[2019-09-30] MEDS ORDERED: PROPOFOL IV EMULSION 10 MG/ML 20 ML VIAL IV ONE (12:56)
[2019-09-30] MEDS ORDERED: ONDANSETRON INJ 2 MG/ML 2 ML VIAL ONE (12:56)
[2019-09-30] MEDS ORDERED: GLYCOPYRROLATE 0.2 MG/ML VIAL ONE (13:51)
[2019-09-30] MEDS ORDERED: NEOSTIGMINE METHYLSULFATE 5 MG/5 ML SYR ONE (13:51)
[2019-09-30] MEDS ORDERED: ATROPINE SULFATE 0.1 MG/ML 10ML SYR IV PRN (14:11)
[2019-09-30] MEDS ORDERED: ONDANSETRON INJ 2 MG/ML 2 ML VIAL IV PRN (14:11)
[2019-09-30] MEDS ORDERED: ePHEDrine sulfate 50 MG/ML AMP IV PRN (14:11)
[2019-09-30] MEDS ORDERED: PROMETHAZINE HCL 6.25 MG in SODIUM CHLORIDE 0.9% 50 ML IV PRN (14:11)
[2019-09-30] MEDS ORDERED: HYDROmorphone INJ 2 MG/ML SYR/VIAL IV PRN (14:11)
[2019-09-30] MEDS ORDERED: fentaNYL citrate 100 MCG/2 ML VIAL IV PRN (14:11)
[2019-09-30] MEDS: SODIUM CHLORIDE 0.9% IV SCH (14:23)
[2019-09-30] MEDS: SINCALIDE IV SCH (14:23)
--- NOTE | 2019-09-30 14:23 | Fluoroscopy Report ---
INTRAOPERATIVE CHOLANGIOGRAM HISTORY: Post cholecystectomy. FLUOROSCOPY TIME: 4 seconds. 2 fluoroscopic spot images.. FINDINGS: Fluoroscopy was provided for an intraoperative cholangiogram status post cholecystectomy. C ontrast was injected through the cystic duct remnant. The common bile duct is normal in course and ca liber. There are no filling defects seen within the common bile duct to suggest a retained stone. Co ntrast extends into the small bowel. There is no intrahepatic bile duct dilatation. IMPRESSION: Fluoroscopy provided for an intraoperative cholangiogram status post cholecystectomy. No filling defects within the common bile duct. ACT 112: Negative or not required by law. Electronically signed by: Eduardo Felder M.D. 09/30/2019 2:22 PM
--- NOTE | 2019-09-30 14:30 | Post Operative Brief Note ---
PG Immediate Post Op with CF Date of Surgery September 30, 2019 Pre & Post Diagnosis Operation Date: 09/30/19 08:50 Pre-Op Diagnosis: acute cholecystitis Post-Op Diagnosis: acute cholecystitis I identified the patient and participated in the time-out.: Yes Procedure Operation Date: 09/30/19 08:50 Actual Procedures p Laparoscopic Cholecystectomy with cholangiogram(Not Applicable) - Jacky Luong MD Surgeon Jacky Luong MD [employer] Machine Set Up Mechanic B CHIKIS CLINTON Estimated Blood Loss 5 Findings Consistent with Post-Op Diagnosis Specimens Specimen Description: Microbiology 1. Gallbladder culture Permanent A. Gallbladder and contents
--- NOTE | 2019-09-30 14:42 | Operative Report ---
PG Post Operative Report Pre & Post Diagnosis Operation Date: 09/30/19 08:50 Pre-Op Diagnosis: acute cholecystitis Post-Op Diagnosis: acute cholecystitis I identified the patient and participated in the time-out.: Yes Procedure Operation Date: 09/30/19 08:50 Actual Procedures p Laparoscopic Cholecystectomy with cholangiogram(Not Applicable) - Jacky Luong MD The patient was brought into the operating room theater supine position general endotracheal anesthesia waiting 20 minutes for coronal protocol the abdomen was prepped byline solution properly draped timeout was had patient was identified made a small incision supraumbilically away from the small umbilical hernia that he had followed by a Veress needle followed by CO2 5 mm trocar point of interest bacteroids identified on direct visualization placed 5 mm epigastric 2 5 Chua subcostal port patient was placed in left lateral slightly gallbladder appeared thickened grasped with the lateral port elevated patient has significant amount of fatty tissue on the gallbladder itself which we took down exposing all the way down to the triangle TONYA we were able to get a nice window between the neck of the gallbladder and the cystic duct at this point we clipped it proximally a small opening was made in the cystic duct and a 4 ureteral catheter was passed through a 14 Angiocath through the abdominal wall and positioned in the cystic duct (we needed to replace the ureteral catheter initially with the one that I usually uses a brought in a different 1) serial x-rays were taken there is free flow into the duodenum no obstruction is seen in the common bile duct visualized hepatic radicles although the cystic duct appeared long we at this point choked up on the cystic duct and if we were able to doubly clip it divided dissected out the patricia hepatis staying underneath the gallbladder dissected out the fatty tissue small arteries were appreciated nothing significant we elevated the gallbladder the patient has significant trabeculation from the gallbladder wall to the liver were able then to free this up and divided with electrocautery the gallbladder was freed from completely from the liver placed in an Endopouch and taken out intact through the epigastric port I did culture it gallbladder was sent for pathology subhepatic suprahepatic area was checked for stasis appears satisfactory we placed the camera right subcostal port laterally to visualize initial umbilical opening and no adhesions were identified individual trochars were taken on direct visualization unless the 5 mm umbilical port removed wound was closed 4-0 Monocryl Steri-Strips applied procedure was tolerated well by the patient 5 cc blood loss addendumB Cynthia CLINTON was present throughout the pr ocedure and helped with exposure retraction camera work and wound closure Surgeon Jacky Luong MD Occupational Medicine Officer B CYNTHIA CLINTON Estimated Blood Loss 5 Findings Consistent with Post-Op Diagnosis Specimens gallbladder and contents Description of Procedure merda I attest to the content of the Intraoperative Record and any orders documented therein. Any exceptions are noted below.
--- NOTE | 2019-09-30 15:32 | Anesthesiology Progress Note ---
Date of Service September 30, 2019 Anesthesia Post Procedure Vital Signs Vital Signs: Temp Pulse Pulse Resp BP BP Pulse Ox 09/30/19 15:30 74 16 128/96 94 09/30/19 15:20 36.2 C L 69 20 125/91 97 09/30/19 15:10 72 22 130/90 96 09/30/19 15:04 36.1 C L 83 20 129/97 92 09/30/19 12:42 37.1 C 70 18 123/84 98 09/30/19 07:16 36.6 C 54 L 16 111/80 97 09/29/19 23:25 36.7 C 65 18 116/74 96 Pain Intensity Abdomen: Pain Intensity: 3 Transfer of Care Handoff Completed per policy Notes Mental Status: alert / awake / arousable Patient Amnestic to Procedure: Yes Nausea / Vomiting: adequately controlled Pain: adequately controlled Airway Patency, RR, SpO2: stable & adequate BP & HR: stable & adequate Hydration State: stable & adequate Anesthetic Complications: no major complications apparent
[2019-09-30] MEDS ORDERED: MoRPHine SULFATE 4 MG/ML 1 ML CARP\\VIAL IV PRN (16:02)
[2019-09-30] MEDS ORDERED: MoRPHine SULFATE 2 MG/ML CARP IV PRN (16:02)
--- NOTE | 2019-09-30 18:09 | Surgery Progress Note ---
Date of Service September 30, 2019 Subjective pt feels improved after pain control, did tolerate nuclear med scan which suggests cystic duct stone. Pt understands that he will benefit from surgery. Tenative surgery will be 09/30/19 Results & Data Vital Signs (Past 12 Hours) Vital Signs Temp Pulse Pulse Resp BP BP Pulse Ox 09/30/19 17:00 36.6 C 72 18 134/78 97 09/30/19 16:28 36.3 C L 63 17 121/82 93 09/30/19 16:00 36.4 C L 70 18 127/85 95 09/30/19 15:30 74 16 128/96 94 09/30/19 15:20 36.2 C L 69 20 125/91 97 09/30/19 15:10 72 22 130/90 96 09/30/19 15:04 36.1 C L 83 20 129/97 92 09/30/19 12:42 37.1 C 70 18 123/84 98 09/30/19 07:16 36.6 C 54 L 16 111/80 97 PG Care Time/CCT Total # of Minutes Spent Total Time Spent with Patient: Total time spent is greater than 50% in coordination of care (as documented) at patient's floor/unit and/or counseling patient: Coding
--- NOTE | 2019-09-30 18:14 | Discharge Summary ---
Date of Service September 30, 2019 Admission HPI Per Admitting Provider Jose is a 49-year-old male with a past medical history of hypothyroidism and hypertension who presents with 1 day of 6/10 right upper quadrant pain 2 hours after having steak salad. Jose reports his symptoms began at around 7:30 PM 2 hours after having dinner. He experienced right flank pain which was more towards his back which wrapped around and migrated to his right upper quadrant. He notes that the pain had mine e spasm-like quality and was worse trying to sit or lay down and appeared to improve when he got up and walked around. He notes the pain was 6/10 and that during the episode he was "pouring sweat". He denies nausea, vomiting, diarrhea, constipation, fever, chills, rigors. He thinks he has had some pain in the same area intermittently over the past several weeks/months but "nothing like this." MHx: Reviewed SHx: Reviewed Allergies: NKDA Social: Tobacco (snuff 1 can per day x30 years), ETOH 2-3 days per week 3-4 drinks per sitting. Denies recreational drug use. Reports he lives at home with his and daughter, no sick contacts in the house. CODE STATUS: Full Code Principal Diagnosis cholecystitis, s/p laparoscopic cholecystectomy Discharge Exam The patient appeared well Vital signs as documented. Lungs are clear to auscultation and appear unlabored Cardiac exam, Rhythm is regular.. No murmurs, rubs or gallops. Abdominal exam reveals normal bowel sounds, soft only mildly tender Extremities are nonedematous and both pedal pulses are normal. Neurologic exam is alert and oriented, no focal loss of strength or sensation Skin is without bruises or rashes Psychologically is without concerns for anxiety or depression Discharge Data Allergies Allergy/AdvReac Type Severity Reaction Status Date / Time No Known Allergies Allergy Unverified 09/28/19 23:00 Consultations 09/29/19 01:51 ED Decision to Admit Stat 09/29/19 03:38 Consult General Surgery Stat Procedures Performed Operation Date: 09/30/19 08:50 Actual Procedures p Laparoscopic Cholecystectomy with cholangiogram(Not Applicable) - Jacky Luong MD Ordered Studies 09/28/19 22:25 CT abd pelvis wo con Stat 09/28/19 23:46 US gallbladder Urgent 09/30/19 12:20 [place] cholangiogram OR Routine Hospital Course (1) Abdominal pain, RUQ: Concern for acute cholecystitis with this impacted cystic duct stone Successful surgical removal of the gallbladder with postoperative cholangiogram without retained stone 09/29 (2) Biliary colic: Nuclear medicine scan suggest duct cystic duct stone as the origin of his discomfort Resolved after surgery patient is able to eat without discomfort (3) Hypertension: Resume lisinopril hydrochlorothiazide at time of discharge (4) Hypothyroid: continues on synthroid 50 mcg Total Time Total Time Spent Total Time Spent (In Minutes): Less than 30 minutes were required to prepare this discharge Discharge Plan Discharge Items Patient Disposition: Home - Self-Care Reason For Visit: RUQ PAIN Discharge Diagnosis: laparoscopic cholecystectomy Activity: Per Instructions section Lifting: No more than 10 pounds Bathing Comment: may shower starting 10/01/19, no soaking in tubs Exercise/Sports: Wait until after follow-up appointment Driving/Machine Use: Resume 3 days after discharge Non-emergency contact: Surgeon Call non-emergency contact if: you have any medication questions, your symptoms worsen, your pain is not controlled, your pain is worsening, you have a fever, your temperature is above 101.5, your wound has increased redness, your wound has increased drainage and your wound pain has increased Follow-up/Referrals: Jacky Luong MD [Surgeon] - Valente Shelton DO [Surgeon] - (Please call to schedule follow up in clinic within 2 weeks) David Simms Jr, DO [Primary Care Provider] - Diet: Regular Addtl Attending Provider Instructions: please do not return to work until after you see Dr Luong in follow up Post-Surgical ~Discharge Instructions Activity Recommendations: - lifting limitation: (10 pounds for 2 weeks), - exercise/sex/sports limit: (nonstrenuous for 2 weeks), - driving or machine use limit: (none for 1 week), - Shower/bathe limit: (may shower beginning tomorrow) Diet: - Resume previous diet SPECIAL CARE INSTRUCTIONS: - May shower in 24 hours. Let water run over area and pat dry. - Leave steri strips on for one week. - Call the surgeon's office with any questions or concerns - - (ex. temperature higher than 101 degrees F, excessive bleeding or pain). MEDICATIONS: - Resume previous medications unless instructed otherwise by your surgeon. - tylenol for pain if needed FOLLOW UP VISIT: - If not already scheduled, please call the office to schedule a one week follow up visit Pending Studies at Discharge: Yes Studies:: surgical pathology Stand-Alone Forms: My [facility] [employer], Smoking Cessation Medications and DC Order Prescriptions: Continued lisinopril-hydrochlorothiazide 20-12.5 mg tablet 1 tab PO DAILY RF: 0 levothyroxine [Synthroid] 50 mcg tablet 50 mcg PO DAILY RF: 0 Discharge Orders: Discharge Order (Routine); Ordered 09/30/19 Ordered By: Gilberto Cheng Admission Data Admit Date/Time: 09/29/19 02:40 Attending Provider: Gilberto Cheng Admit Provider: Carlton Fay Primary Care Provider: David Simms Jr Other Providers: Clayton Islas Matthew D. Coding Level of Care Code D/C Day Management <30 mins Diagnoses Abdominal pain, RUQ R10.11 Biliary colic K80.50 Hypertension I10 Hypothyroid E03.9
--- NOTE | 2019-09-30 19:02 | Surgery Progress Note ---
Date of Service September 30, 2019 Assessment & Plan (1) Biliary colic: The patient and his are both anxious to have him home tonight initially I thought to keep him overnight but since he is doing so well and is pain-free discussed with the medical service and the patient certainly can be di scharged tonight we will see him back in the office next Sunday he could probably go back to work next Sunday meantime he can shower really does not need anything for pain can take an occasional Motrin and to call our office and anytime new issues arise and to make a follow-up appointment for next Sunday instructions were given to him where our offices Intraoperative findings were discussed with the patient Present on Admission?: Yes Subjective Patient is doing fine is postoperative lap cam cholangiogram approximately 4 hours ago he sitting on chair eating a regular diet without any abdominal discomfort Results & Data Vital Signs (Past 12 Hours) Vital Signs Temp Pulse Pulse Resp BP BP Pulse Ox 09/30/19 18:45 36.6 C 72 18 121/82 134/78 97 09/30/19 17:00 36.6 C 72 18 134/78 97 09/30/19 16:28 36.3 C L 63 17 121/82 93 09/30/19 16:00 36.4 C L 70 18 127/85 95 09/30/19 15:30 74 16 128/96 94 09/30/19 15:20 36.2 C L 69 20 125/91 97 09/30/19 15:10 72 22 130/90 96 09/30/19 15:04 36.1 C L 83 20 129/97 92 09/30/19 12:42 37.1 C 70 18 123/84 98 09/30/19 07:16 36.6 C 54 L 16 111/80 97 PG Care Time/CCT Total # of Minutes Spent Total Time Spent with Patient: Total time spent is greater than 50% in coordina tion of care (as documented) at patient's floor/unit and/or counseling patient: Coding Level of Care Code None Diagnoses Biliary colic K80.50
== END 2019-09-30 19:32 | disposition home or self-care (01) ==
LOC: 3N 22:14 → ED 22:14 → SUATTDRO 09-29 02:40 → 3N 09-29 03:18 → 3E 09-29 14:38